=== PATIENT | female | born 1950 | race Caucasian/White ===

== ENCOUNTER 2018-01-02 00:19 | Inpatient (IN) | payer MEDICARE, OTHER ==
[2018-01-02] MEDS ORDERED: Aspirin 81 mg CHEW TAB* 81 MG TAB.CHEW PO ONE ×2 (00:44→12:03)
[2018-01-02 01:31] LABS: ABS Basophils 0 10^3/ul (0-0.2); ABS Eosinophils 0.1 10^3/ul (0-0.6); ABS Lymphocytes 1.1 10^3/ul (1.0-4.8); ABS Monocytes 0.7 10^3/ul (0-0.8); ABS Neutrophils 7.1 10^3/ul (1.5-7.7); ABS Nucleated RBC 0 10^3/ul; Eosinophil % 1.2 % (0-6); Hematocrit 41 % (35-47); Hemoglobin 14.2 g/dl (12.0-16.0); Lymphocyte % 12.2 % (25-47); Mean Corpuscular HGB Conc 35 g/dl (31-36); Mean Corpuscular Hemoglobin 34 pg (27-31); Mean Corpuscular Volume 98 fL (80-97); Mean Platelet Volume 8.1 um3 (7.4-10.4); Nucleated Red Blood Cells % 0; Platelet Count 247 10^3/ul (150-450); Red Cell Distribution Width 12 % (10.5-15); White Blood Count 9.1 10^3/ul (3.5-10.8)
[2018-01-02] MEDS ORDERED: Nitroglycerin TAB 0.4 MG* 0.4 MG TAB SL ONE (03:42)
[2018-01-02] MEDS ORDERED: ALPRAZolam TAB* 0.25 MG PO ONE ×2 (04:11→04:29)
[2018-01-02] MEDS ORDERED: Metoprolol Tartrate TAB* 25 MG PO ONE ×2 (04:11→04:14)
[2018-01-02] MEDS ORDERED: Metoprolol Tartrate IV* 1 MG/ML 5 ML VIAL IV ONE (04:12)
[2018-01-02] MEDS ORDERED: LORazepam INJ* 2 MG/ML 1 ML VIAL IV PUSH ONE ×2 (04:12→11:43)
[2018-01-02] MEDS ORDERED: Ondansetron INJ* 2 MG/ML VIAL IV ONE (04:25)
[2018-01-02] MEDS ORDERED: NS 0.9% 500 ML* 500 ML IV ONE (04:25)
[2018-01-02] MEDS ORDERED: Ondansetron ODT TAB* 4 MG ONE (04:31)
[2018-01-02] MEDS ORDERED: Ondansetron 40 MG VIAL* 2 MG/ML 20 ML VIAL IV PRN (04:59)
[2018-01-02] MEDS ORDERED: Atorvastatin* 80 MG TAB PO ONE ×2 (04:59)
[2018-01-02] MEDS ORDERED: Acetaminophen TAB* 325 MG PO PRN (04:59)
[2018-01-02] MEDS ORDERED: ALPRAZolam TAB* 0.25 MG PO PRN (05:03)
[2018-01-02] MEDS ORDERED: Albuterol 2.5 MG/3 ML NEB.SOL* (0.083%) INH PRN (05:05)
--- NOTE | 2018-01-02 06:35 | ED ---
Endy Pepe Elizabeth, scribed for Kimo Mckeon MD on 01/02/18 at 0033 . HPI Chest Pain - HPI Summary HPI Summary: This patient is a 67 year old F presenting to [facility] with a chief complaint of intermittent upper chest pain since 7 days ago. The patient notes that the pain worsened tonight at 22:30. The patient rates the pain 3/10 in severity. Symptoms aggravated by nothing. Symptoms alleviated by nothing. Patient reports mid-upper back pain, nausea, vomiting phlegm, productive cough, lightheadedness , and shortness of breath. The patient reports that she has been stressed recently. Patient has a hx of HTN. The patient also notes that she has had heartburn before but that this feels different. - History of Current Complaint Chief Complaint: EDChestPainROMI Time Seen by Provider: 01/02/18 00:28 Hx Obtained From: Patient Hx Last Menstrual Period: TIARA Onset/Duration: Started Days Ago - 7 days ago, Atraumatic, Still Present Initial Severity: Mild Current Severity: Mild Pain Intensity: 5 Pain Scale Used: 0-10 Numeric Chest Pain Location: Upper Sternal Chest Pain Radiates To:: Back - mid-upper back Aggravating Factor(s): Nothing Alleviating Factor(s): Nothing Associated Signs and Symptoms: Positive: Chest Pain, Lightheadedness, Nausea, Productive Cough, Back Pain, Vomiting - Allergy/Home Medications Allergies/Adverse Reactions: Allergies Allergy/AdvReac Type Severity Reaction Status Date / Time cephalexin [From Keflex] Allergy Severe Swelling Verified 01/02/18 00:58 Of Face,Lips,& Throat Sulfa (Sulfonamide Allergy Unknown Hives Verified 01/02/18 00:58 Antibiotics) loracarbef [From Lorabid] Allergy Unknown Verified 01/02/18 00:58 Reaction Details nitrofurantoin Allergy Unknown Verified 01/02/18 00:58 [From Macrobid] Reaction Details PMH/Surg Hx/FS Hx/Imm Hx Endocrine/Hematology History: Denies: Hx Diabetes, Hx Thyroid Disease Cardiovascular History: Reports: Hx Hypertension Respiratory History: Reports: Hx Asthma Denies: Hx Chronic Obstructive Pulmonary Disease (COPD) GI History: Denies: Hx Ulcer Musculoskeletal History: Reports: Hx Osteoporosis Denies: Hx Rheumatoid Arthritis - Cancer History Hx Chemotherapy: No Hx Radiation Therapy: No - Surgical History Surgery Procedure, Year, and Place: Hysterectomy 2000 Infectious Disease History: No Infectious Disease History: Reports: Hx Hepatitis Denies: Hx Human Immunodeficiency Virus (HIV), Traveled Outside the [place] in Last 30 Days - Family History Known Family History: Positive: Hypertension - Social History Alcohol Use: Rare Hx Substance Use: No Substance Use Type: Reports: None Hx Tobacco Use: No Smoking Status (MU): Never Smoked Tobacco Review of Systems Negative: Fever Negative: Epistaxis Positive: Chest Pain - upper chest Positive: Shortness Of Breath, Cough Positive: Vomiting, Nausea Musculoskeletal: Other - mid upper back pain Neurological: Other - positive lightheadedness All Other Systems Reviewed And Are Negative: Yes Physical Exam - Summary Physical Exam Summary: Appearance: Well-appearing, no distress, Well-nourished Skin: Warm, color reflects adequate perfusion Head: Normal Head/Face inspection Eyes: Conjunctiva clear ENT: Normal inspection Neck: Supple, no nodes, no JVD. no bruit Respiratory: Lungs clear, Normal breath sounds, no respiratory distress Cardio: RRR, No murmur, pulses normal, brisk capillary refill Abdomen: soft, nontender, no guarding, no rebound Bowel sounds: present Musculoskeletal: Strength Intact/ ROM intact. No calf tenderness. No edema. Neuro: Alert, muscle tone normal, facial symmetry, speech normal, sensory/motor intact Psychological: Normal Triage Information Reviewed: Yes Vital Signs On Initial Exam: Initial Vitals Temp Pulse Resp BP Pulse Ox 97 F 102 18 154/82 100 01/02/18 00:22 01/02/18 00:22 01/02/18 00:22 01/02/18 00:22 01/02/18 00:22 Vital Signs Reviewed: Yes Diagnostics - Vital Signs Vital Signs Temp Pulse Resp BP Pulse Ox 01/02/18 00:22 97 F 102 18 154/82 100 - Laboratory Lab Results: Lab Results 01/02/18 01/02/18 01/02/18 Range/Units 00:52 00:52 01:20 WBC 9.1 (3.5-10.8) 10^3/ul RBC 4.20 (4.00-5.40) 10^6/ul Hgb 14.2 (12.0-16.0) g/dl Hct 41 (35-47) % MCV 98 H (80-97) fL MCH 34 H (27-31) pg MCHC 35 (31-36) g/dl RDW 12 (10.5-15) % Plt Count 247 (150-450) 10^3/ul MPV 8.1 (7.4-10.4) um3 Neut % (Auto) 78.1 (38-83) % Lymph % (Auto) 12.2 L (25-47) % Ness % (Auto) 8.0 H (0-7) % Eos % (Auto) 1.2 (0-6) % Baso % (Auto) 0.5 (0-2) % Absolute Neuts (auto) 7.1 (1.5-7.7) 10^3/ul Absolute Lymphs (auto) 1.1 (1.0-4.8) 10^3/ul Absolute Monos (auto) 0.7 (0-0.8) 10^3/ul Absolute Eos (auto) 0.1 (0-0.6) 10^3/ul Absolute Basos (auto) 0 (0-0.2) 10^3/ul Absolute Nucleated RBC 0 10^3/ul Nucleated RBC % 0 D-Dimer, Quantitative (Less Than 230) ng/mL Sodium 137 (135-145) mmol/L Potassium 3.6 (3.5-5.0) mmol/L Chloride 102 (101-111) mmol/L Carbon Dioxide 25 (22-32) mmol/L Anion Gap 10 (2-11) mmol/L BUN 25 H (6-24) mg/dL Creatinine 0.94 (0.51-0.95) mg/dL Est GFR ( Amer) 75.9 (>60) Est GFR (Non-Af Amer) 59.0 (>60) BUN/Creatinine Ratio 26.6 H (8-20) Glucose 128 H (70-100) mg/dL Calcium 9.6 (8.6-10.3) mg/dL Total Bilirubin 0.40 (0.2-1.0) mg/dL AST 17 (13-39) U/L ALT 15 (7-52) U/L Alkaline Phosphatase 77 (34-104) U/L Troponin I 0.05 H* (<0.04) ng/mL B-Natriuretic Peptide 42 ( - 100) pg/mL Total Protein 7.0 (6.4-8.9) g/dL Albumin 4.1 (3.2-5.2) g/dL Globulin 2.9 (2-4) g/dL Albumin/Globulin Ratio 1.4 (1-3) Lipase 38 (11.0-82.0) U/L 01/02/18 01/02/18 Range/Units 03:01 03:01 WBC (3.5-10.8) 10^3/ul RBC (4.00-5.40) 10^6/ul Hgb (12.0-16.0) g/dl Hct (35-47) % MCV (80-97) fL MCH (27-31) pg MCHC (31-36) g/dl RDW (10.5-15) % Plt Count (150-450) 10^3/ul MPV (7.4-10.4) um3 Neut % (Auto) (38-83) % Lymph % (Auto) (25-47) % Ness % (Auto) (0-7) % Eos % (Auto) (0-6) % Baso % (Auto) (0-2) % Absolute Neuts (auto) (1.5-7.7) 10^3/ul Absolute Lymphs (auto) (1.0-4.8) 10^3/ul Absolute Monos (auto) (0-0.8) 10^3/ul Absolute Eos (auto) (0-0.6) 10^3/ul Absolute Basos (auto) (0-0.2) 10^3/ul Absolute Nucleated RBC 10^3/ul Nucleated RBC % D-Dimer, Quantitative < 200 (Less Than 230) ng/mL Sodium (135-145) mmol/L Potassium (3.5-5.0) mmol/L Chloride (101-111) mmol/L Carbon Dioxide (22-32) mmol/L Anion Gap (2-11) mmol/L BUN (6-24) mg/dL Creatinine (0.51-0.95) mg/dL Est GFR ( Amer) (>60) Est GFR (Non-Af Amer) (>60) BUN/Creatinine Ratio (8-20) Glucose (70-100) mg/dL Calcium (8.6-10.3) mg/dL Total Bilirubin (0.2-1.0) mg/dL AST (13-39) U/L ALT (7-52) U/L Alkaline Phosphatase (34-104) U/L Troponin I 0.18 H* (<0.04) ng/mL B-Natriuretic Peptide ( - 100) pg/mL Total Protein (6.4-8.9) g/dL Albumin (3.2-5.2) g/dL Globulin (2-4) g/dL Albumin/Globulin Ratio (1-3) Lipase (11.0-82.0) U/L Result Diagrams: 01/02/18 01:20 01/02/18 00:52 Lab Statement: Any lab studies that have been ordered have been reviewed, and results considered in the medical decision making process. - Radiology CXR Xray Interpretation: No Acute Changes - Impression: no acute cardiopulmonary process, normal CXR Radiology Interpretation Completed By: ED Physician - Dr. Mckeon, pending official report - EKG 00:29 Cardiac Rate: NL - at 86 bpm EKG Rhythm: Sinus Rhythm EKG Interpretation: NSR, nml axis, nml intervals, no ST or T wave changes 04:00 Cardiac Rate: Tachycardia - at 100 bpm EKG Rhythm: Sinus Tachycardia EKG Interpretation: nml axis, nml intervals, no ST or T wave changes, new EKG findings noted Re-Evaluation - Re-Evaluation First Eval Comment: Pt chest pain continues to be 1-09/27. Pt with elevated Troponin consistent with ACS. Spoke with Hematology regarding recommendations for anticoagulation given pt's Von Willebrands disease. NO acute rec's at this time. Chest Pain Course/Dx - Course Course Of Treatment: Pt with elevated and rising Troponin's. Pt with h/o von Wilibrand's disease, as pt not a candidate for ASA or Heparin at this time. Unclear aas to plan for anticoagulation. Spoke with Hematology and Cardiology regarding plan of care, with no clear consensus. Will hold anticoagulation for now with plan for coordinated treatment plan in the am. - Chest Pain Differential Diagnosis/HQI/PQRI: Acute VT, ACS, Angina, CHF, Chest Wall, GI Disease, Lower Respiratory Infection, Pulmonary Edema, Pulmonary Embolism - Diagnoses Provider Diagnoses: NSTEMI (non-ST elevated myocardial infarction) - Provider Notifications Discussed Care Of Patient With: Igor Nobles MD Time Discussed With Above Provider: 03:45 Instructed by Provider To: Other - Dr. Nobles agreed to admit patient to [facility] [place]. At 03:35 discussed patient care with Dr. Roe, personal lines sales executive, and requested formal consultation in the morning regarding anticoagulation. - Critical Care Time Critical Care Time: 30-74 min - Failure to initiate treatment on urgent bassis would result in clinically significant life threatening detioration in condition. Discharge - Sign-Out/Discharge Documenting (check all that apply): Discharge/Admit/Transfer - Discharge Plan Condition: Stable Disposition: ADMITTED TO [facility] Discharge Disposition Comment: admit to [facility] [place] - Billing Disposition and Condition Condition: STABLE Disposition: Admitted to [facility] The documentation as recorded by the Endy norman Elizabeth accurately reflects the service I personally performed and the decisions made by , Kimo Mckeon MD.
[2018-01-02 06:53] LABS: EGFR Non-African American 66.3 (>60)
--- NOTE | 2018-01-02 07:56 | RAD ---
Indication: Chest pain and mid to upper back pain. Nausea and vomiting. History of asthma. Comparison: December 16, [address] Technique: Upright AP 0100 hours Report: Clear lungs and pleural spaces. Negative for pneumothorax. The heart, pulmonary vasculature, and mediastinal contours are unremarkable. Negative for free air beneath the diaphragm. Unremarkable osseous structures and soft tissue contours. IMPRESSION: No evidence for acute intrathoracic disease.
[2018-01-02] MEDS ORDERED: Citalopram TAB* 10 MG PO SCH (09:00)
[2018-01-02] MEDS ORDERED: SALMETEROL XINAFOATE IN SCH (09:00)
[2018-01-02] MEDS ORDERED: Budesonide Flexhaler 180 (NF) 180 MCG/ACT MDI INH SCH (09:00)
[2018-01-02] MEDS ORDERED: Metoprolol Tartrate TAB* 25 MG PO SCH (09:00)
[2018-01-02] MEDS ORDERED: Cetirizine* 10 MG TAB PO SCH (09:00)
[2018-01-02] MEDS ORDERED: Fluticasone/Vilanterol MDI(NF) 100/25 MDI INH SCH (09:00)
--- NOTE | 2018-01-02 09:03 | HP ---
AMENDED REPORT NOW INCLUDES COSIGNER DESIGNATION - ESIGNED BEFORE ADJUSTMENT CC: Dr. Mejia; Dr. Roe; Dr. Hernandez * HISTORY AND PHYSICAL: DATE OF ADMISSION: 01/02/18 PRIMARY CARE PROVIDER: Dr. Mejia. ATTENDING PHYSICIAN WHILE IN THE HOSPITAL: Dr. Swain * (report dictated by Livan Bobby NP). CONSULTING SWEET DOUGH MIXER: Dr. Hernandez. CONSULTING HOMOGENIZER OPERATOR: Dr. Roe. CHIEF COMPLAINT: Chest pain. HISTORY OF PRESENT ILLNESS: Mrs. Villavicencio is a 67-year-old female patient. She carries a history of hypertension, asthma, osteoporosis, history of diverticulosis, history of glaucoma, anxiety, depression and history of von Willebrand syndrome. She is coming in to our emergency department today stating that on Friday she was exercising. She was using the treadmill and she noticed that her chest felt funny while exercising. She stopped. The symptoms slowly dissipated. She thought maybe it was related to her asthma. She noticed that she had similar episodes on Friday. She also had similar episode on Friday. She does state that she is under a lot of stress. She thought maybe it was also related to stress. At times, she does have the discomfort associated with burping; however, tonight she had this episode about 4 times, however, she described this as a tightness, pressure, heaviness in the center of the chest that radiated across the chest through to her back. She says that she had associated nausea, associated diaphoresis, associated shortness of breath when she got these episodes tonight. Her last episode was at around 11: 30 tonight. She was concerned because the symptoms were not getting any better. They were a little bit more severe and they are becoming more frequent. She says that initially it happened with exertion on Friday. She denied any recent travel. No calf pain. No calf swelling. No lower edema. She denied any orthopnea. She said that the discomfort did not radiate into her jaw or down her arm. There has been no recent fevers or chills. She denied any recent URI or coughing type cold symptoms. She was concerned, came into our ER tonight, and it was noted that her enzymes were elevated. Her initial troponin was 0.05. Repeat troponin was 0.18. So because of these findings, we were asked to evaluate for admission. PAST MEDICAL HISTORY: Significant for: 1. Hypertension. 2. Asthma. 3. Osteoporosis. 4. Diverticulosis. 5. History of von Willebrand syndrome. She said she was diagnosed with this prior to her hysterectomy that was performed at [facility]. We are going to try to get those records as she said she has not had any bleeding episodes related to this. No reports of GI bleeding or internal bleeding. She does state that she bruising easily. She also has history of glaucoma and history of anxiety. 6. Depression. PAST SURGICAL HISTORY: She has had hysterectomy. MEDICATIONS: Home meds include: 1. Albuterol one inhaler every 4 hours as needed. 2. Tylenol two tablets every 6 hours as needed. 3. Xanax 0.25 mg p.o. t.i.d. as needed. 4. Radha 180 mg p.o. daily. 5. Celexa 10 mg daily. 6. Pulmicort two puffs inhaled daily. 7. Dyazide one capsule p.o. daily. 8. Travatan one drop both eyes daily. 9. Serevent one puff inhaled daily. 10. Flonase 50 mcg nasally daily. ALLERGIES TO MEDICATIONS: Include KEFLEX, SULFA, LORABID, PENICILLIN, NITROFURANTOIN, MACROBID. FAMILY HISTORY: Her mother had an [place] at 86. Father had a history of pericarditis and rheumatic fever. He when he was 29. SOCIAL HISTORY: She does not smoke. She does drink alcohol about 4 times a week. She denies recreational drug abuse. Surrogate decision maker is her . REVIEW OF SYSTEMS: There is no documented fever. She is denying any significant weight change. There is no double vision. She denies having any ear discharge. There is no rhinorrhea. She denies having any sore throat. There is no thyroid enlargement. There is chest pressure from my HPI. There is no orthopnea. There is no nocturnal dyspnea. She denies having any abdominal discomfort. There was nausea. She had one episode of vomiting today. She denies having any dysuria. There is no frequency. There was no seizure. There is no loss of consciousness. No pruritus and no skin ulcerations. Review of 14 systems completed, all others negative. PHYSICAL EXAMINATION GENERAL: At this time, Mrs. Villavicencio is a 67-year-old female patient. She is sitting in the ED stretcher. She does not appear to be in any acute distress. VITAL SIGNS: Blood pressure is noted to be 158/88, pulse 81, respirations 19, O2 saturations were 98%, temperature was 97. HEENT: Head: Atraumatic and normocephalic. Eyes: EOMs are intact. Sclerae anicteric and not pale. Throat: Oral mucosa appears to be moist. No oropharyngeal erythema. NECK: Supple. LUNGS: Clear to auscultation bilaterally. There were no wheezes, rales or rhonchi. HEART: Sounds S1, S2. She had regular rate and rhythm. No murmurs, rubs or gallops. ABDOMEN: Soft. It was flat, it was nontender. Bowel sounds were present. EXTREMITIES: Pulses are 2+ throughout. She is moving all 4 extremities with 5/ 5 strength. NEUROLOGIC: The patient is awake. She is alert. She is oriented x3. Tongue is midline. No gross focal deficits. Skin: Intact. DIAGNOSTIC STUDIES/LAB DATA: Her labs today revealed a WBC of 9.1, RBC of 4.20 , hemoglobin 14.2, hematocrit of 41, platelet count of 247. D-dimer less than 200. Sodium was 137, potassium of 3.6, chloride of 102, bicarb 25, BUN 25, creatinine of 0.94, glucose 128, calcium 9.6, total bili 0.4, AST 17, ALT 15, alk phos 77. Initial troponin was 0.05. Repeat troponin in 3 hours was 0.18. BNP of 42. Lipase 38, albumin normal. She did have a chest x-ray obtained today under my review. I did not appreciate any acute infiltrates or pulmonary edema and no effusions. Appeared to be a clear chest x-ray. She had several EKGs obtained today. The first one was at 12:30 tonight, which did show a normal sinus rhythm, rate of 85. She had a biphasic T- wave in V2 but no ST elevations were noted or any other T- wave inversions. Subsequent EKGs again continued to show the biphasic T-wave in V2. In addition to this that she was in sinus rhythm. Heart rate was [address] elevation what was noted. Also, please note she did have biphasic T waves in V1 as well, which remained stable with subsequent EKGs. Old medical records were reviewed. ASSESSMENT AND PLAN: Mrs. Villavicencio is a 67-year-old female patient with complex medical history coming in today with concerning story for chest pain, now found to have an elevated troponin. She will be admitted under inpatient status for: 1. Acute coronary syndrome. Case is complicated by the history of the von Willebrand syndrome. The patient said that this was diagnosed prior to her hysterectomy, she had a family history. She requested testing, which was tested as positive. She said she was given a medication prior to the procedure. The procedure was performed here at [facility]. We are going to try to get those records from the sponge diver, Dr. Arita. We may need to touch base with him in the morning to get these records to help clarify this. I did also touch base with cardiology and I also touched base with hematology. At this point, aspirin is not recommended by the hematology group because of the significant risk of bleeding associated with it unless absolutely necessary and in fact, hematology does recommend and prefers using heparin drip if she becomes unstable. At this point, she is chest pain free. EKG remained stable. Troponin is 0.18. Repeat troponin is pending. I did touch base with cardiology I asked if transfer was indicated given her history and if she would be considered a high risk cath at this point it was felt the patient could be cared for at [facility]. They would like antiplatelets; however, when offered to the patient, she refused this adamantly. She does know the risk associated with not taking the aspirin at this point but again, she is chest pain free and I explained to her the risks and benefits taking aspirin and she again did refuse. The plan would be to cycle the troponins, get another EKG in the morning, echo, get records from Dr. Arita's office, in addition to this, get formal cardiology evaluation and hematology evaluation, I did send off of von Willebrand panel as well. I would like to try to get her blood pressure down. I am going to get her on nitrates on the chest. I ordered nitro paste. I did order Lipitor and I ordered beta-brendon therapy. I placed her on telemetry and we will continue to follow her closely. 2. Hypertension. Again, blood pressure here was 158. I am going to get the nitro paste started and try to get this better controlled heart rate when she at times was in the 90s. It is now consistently running at around 70 with that beta-brendon given. 3. Asthma. This appears to be stable. We will continue her inhaler treatment as prescribed and p.r.n. nebs. 4. Osteoporosis. Follow with primary. 5. Diverticulosis. Not an active issue currently. 6. History of von Willebrand. Again, we are going to get records from Dr. Arita's office. We will need to have risks and benefits conversation with the patient about going forward for treatment of the possible acute coronary syndrome in terms of antiplatelet therapies and we will need to get records and again, hematology input. 7. Glaucoma. Continue her eye drops. 8. Anxiety and depression. She was very anxious when she heard the diagnosis of acute coronary syndrome and [id number] myocardial infarction. She was given p.r.n. Xanax. We will continue her Xanax and continue to follow. 9. DVT prophylaxis. I did order SCDs. 10. Code status. Full code. 11. Fluids, electrolytes, nutrition. I ordered clear liquid diet. TIME SPENT: Time spent on the admission was approximately 70 minutes, greater than half the time was spent [id number] with the patient obtaining my history and physical, other half time was spent going over the plan of care with the patient and implementing plan of care. I did discuss the plan of care with my attending, Dr. Swain; he is in agreement. LIVAN BOBBY NP [id number]/CPS #: [id number] [place]
[2018-01-02 09:31] LABS: ABS Basophils 0 10^3/ul (0-0.2); ABS Eosinophils 0.1 10^3/ul (0-0.6); ABS Lymphocytes 1.4 10^3/ul (1.0-4.8); ABS Monocytes 0.7 10^3/ul (0-0.8); ABS Neutrophils 6.9 10^3/ul (1.5-7.7); ABS Nucleated RBC 0 10^3/ul; Eosinophil % 1.2 % (0-6); Hematocrit 41 % (35-47); Hemoglobin 14.1 g/dl (12.0-16.0); Lymphocyte % 15.4 % (25-47); Mean Corpuscular HGB Conc 34 g/dl (31-36); Mean Corpuscular Hemoglobin 34 pg (27-31); Mean Corpuscular Volume 98 fL (80-97); Mean Platelet Volume 8.2 um3 (7.4-10.4); Nucleated Red Blood Cells % 0; Platelet Count 271 10^3/ul (150-450); Red Blood Count 4.22 10^6/ul (4.00-5.40); Red Cell Distribution Width 13 % (10.5-15); White Blood Count 9.2 10^3/ul (3.5-10.8)
--- NOTE | 2018-01-02 09:33 | ECHO ---
Patient: ANAT RAMIREZ [facility] Rec#: [id number] : 1950 Date: 01/02/2018 Age: 67y Height: 149.86 cm / 59.0 in Weight: 64.86 kg / 143.0 lbs Sex: F BSA: 1.6 Room#: 431 Admit Date#: 01/02/2018 Type: Inpatient Referring: Livan Bobby NP Reading: Jim Garland MD Rn Infusion: Iliana Wadsworth RDCS CC: Kush Mejia MD Transthoracic Echocardiogram Indication: NSTEMI BP: 157/84 HR: 79 Rhythm: NSR Findings History: HTN, asthma,Von Willebrand's disease. Technical Comments: The study quality is good. Completed at 0821. Left Ventricle: The left ventricular chamber size is decreased. Septal wall hypertrophy is observed. There is a prominent septal knuckle. There are multiple regional wall motion abnormalities. There is mildly decreased left ventricular systolic function. The estimated ejection fraction is 40-45%. closer to 40%. Abnormal left ventricular diastolic function is observed. Abnormal left ventricular diastolic filling is observed, consistent with impaired relaxation. The mid anteroseptal, mid anterior, apical septal, and apical lateral wall segments are hypokinetic (score 2). The apical anterior wall segment is akinetic (score 3). Overall wallmotion score index is 1.38 Left Atrium: The left atrial chamber size is normal. Right Ventricle: The right ventricular cavity size is normal. The right ventricular global systolic function is normal. Right Atrium: The right atrial cavity size is normal. Aortic Valve: The aortic valve is trileaflet. There is no evidence of aortic regurgitation. There is no evidence of aortic stenosis. Mitral Valve: The mitral valve leaflets are mildly thickened. There is a trace of mitral regurgitation. There is no evidence of mitral stenosis. Tricuspid Valve: The tricuspid valve leaflets are normal. There is trace to mild tricuspid regurgitation. No pulmonary hypertension is noted. There is no tricuspid stenosis. Pulmonic Valve: The pulmonic valve appears normal. There is no evidence of pulmonic regurgitation. There is no pulmonic stenosis. Pericardium: The pericardium appears normal. Aorta: There is no dilatation of the ascending aorta. There is no dilatation of the aortic arch. There is no dilation of the aortic root. Pulmonary Artery: The main pulmonary artery appears normal. Venous: The inferior vena cava appears normal in size. There is a greater than 50% respiratory change in the inferior vena cava dimension. Summary: There was not any prior study for comparison. Conclusions There is mildly decreased left ventricular systolic function with anteroapical and anteroseptal hypokinesis. The estimated ejection fraction is 40-45%, closer to 40%. Abnormal left ventricular diastolic function is observed. There is trace to mild tricuspid regurgitation. Measurements Name Value Normal Range RVIDd (AP) 2D 1.9 cm (0.9 - 2.6) RVDdMajor (2D) 2.3 cm (2.2 - 4.4) RAd ISD 4CH 3.8 cm (3.4 - 4.9) RA (A4C)W 3.4 cm (2.9 - 4.6) IVSd (2D) 1.2 cm (0.6 - 1) LVPWd (2D) 1 cm (0.6 - 1) LVIDd (2D) 3.5 cm (3.6 - 5.4) LVIDs (2D) 2.8 cm - LV FS (2D) 20 % (25 - 45) Aortic Annulus 1.7 cm (1.4 - 2.6) Ao root diameter (2D) 3.1 cm (2.1 - 3.5) Ascending Ao 2.7 cm (2.1 - 3.4) Aortic arch 1.8 cm (1.8 - 3.4) Descending Ao 0.5 cm - LA dimension (AP) 2D 3.6 cm (2.3 - 3.8) LAd ISD 4CH 5.8 cm (2.9 - 5.3) LA ISD 4CH W 3.2 cm (2.5 - 4.5) Name Value Normal Range LA ESV SP 4CH (A/L) 36 ml - LA ESV SP 2CH (A/L) 37 ml - LA ESV BP (A/L) 37 ml - LA ESV BP (A/L) index 23.3 ml/m2 - LA ESV SP 4CH (MOD) 33 ml - LA ESV SP 2CH (MOD) 35 ml - Name Value Normal Range MV E-wave Vmax 0.8 m/sec - MV deceleration time 190 msec - MV A-wave Vmax 1 m/sec - MV E:A ratio 0.78 ratio - LV septal e' Vmax 0.06 m/sec - LV lateral e' Vmax 0.07 m/sec - LV E:e' septal ratio 13.33 ratio - LV E:e' lateral ratio 11.42 ratio - Name Value Normal Range AV Vmax 1.3 m/sec - AV VTI 33.5 cm - AV peak gradient 6.33 mmHg - AV mean gradient 2.8 mmHg - LVOT Vmax 1 m/sec - LVOT VTI 23.6 cm - LVOT peak gradient 3.85 mmHg - LVOT mean gradient 1.85 mmHg - Name Value Normal Range TR Vmax 2.3 m/sec - TR peak gradient 22 mmHg - RAP 3 mmHg - RVSP 25 mmHg - IVC diameter 1.2 cm - Name Value Normal Range PV Vmax 0.8 m/sec - PV peak gradient 2.69 mmHg - Wallmotion BAS Normal BA Normal BAL Normal CORNELIUS Normal BI Normal BIS Normal MAS Hypokinetic MA Hypokinetic MAL Normal MIL Normal NV Normal MIS Normal Hypokinetic AA Akinetic AL Hypokinetic AI Normal APEX Hypokinetic
[2018-01-02 09:40] LABS: INR 0.97 (0.77-1.02)
[2018-01-02] MEDS: Nitroglycerin 2% OINT* 1 GM PAK TOPICAL SCH ×3 (10:31→16:09)
[2018-01-02] MEDS ORDERED: Nitro Patch/OINT Remove TOPICAL SCH (12:00)
--- NOTE | 2018-01-02 12:28 | PN ---
Subjective Date of Service: 01/02/18 Interval History: Patient seen and examined. Denies chest pain at this time. No SOB, no epigastric pain, no n/v, no fever or chills. Discussed plan of care at length with patient, Dr. Garland and Dr. Dennis. Patient is visibly distressed and tearful but accepting of being transferred to outside facility given hx of VonWillebrands and now with ACS/NSTEMI and our inability to provide cath because of bleeding risk. Objective Active Medications: Acetaminophen (Tylenol Tab*) 650 mg PO Q4H PRN PRN Reason: FEVER/PAIN Albuterol (Ventolin 2.5 Mg/3 Ml Neb.Denise*) 2.5 mg INH Q2H PRN PRN Reason: SOB/WHEEZING Alprazolam (Xanax Tab*) 0.25 mg PO TID PRN PRN Reason: ANXIETY Atorvastatin Calcium (Lipitor*) 80 mg PO 1700 [facility] Cetirizine HCl (Zyrtec*) 10 mg PO DAILY ROHIT PRN Reason: Protocol Last Admin: 01/02/18 10:24 Dose: 10 mg Citalopram Hydrobromide (Celexa Tab*) 10 mg PO DAILY [facility] Last Admin: 01/02/18 10:25 Dose: 10 mg Latanoprost (Xalatan 0.005%*) 1 drop BOTH EYES QPM ROHIT PRN Reason: Protocol Metoprolol Tartrate (Lopressor Tab*) 25 mg PO BID [facility] Last Admin: 01/02/18 10:25 Dose: 25 mg Mometasone Furoate (Asmanex 220 Mcg Mdi *) 1 puff INH QPM ROHIT Nitroglycerin (Nitroglycerin 2% Oint*) 0.5 inch TOPICAL 0600,1200 ROHIT PRN Reason: Protocol Last Admin: 01/02/18 10:31 Dose: 0.5 inch Ondansetron HCl (Zofran 40 Mg Vial*) 4 mg IV Q6H PRN PRN Reason: NAUSEA Pharmacy Profile Note (Nitro Patch/Oint Remove*) 1 note TOPICAL 1200,1800 [facility] Salmeterol Xinafoate (Serevent Diskus (Nf)) 1 puff INH BEDTIME [facility] Vital Signs - 8 hr 01/02/18 01/02/18 01/02/18 05:37 05:40 06:00 Temperature 98.1 F Pulse Rate 66 59 56 Respiratory 16 16 19 Rate Blood Pressure 153/76 134/78 (mmHg) O2 Sat by Pulse 98 98 95 Oximetry 01/02/18 01/02/18 01/02/18 06:10 06:33 08:00 Temperature 97.8 F Pulse Rate 56 87 Respiratory 16 20 18 Rate Blood Pressure 152/82 157/84 (mmHg) O2 Sat by Pulse 96 97 Oximetry 01/02/18 08:26 Temperature 98.8 F Pulse Rate 64 Respiratory 16 Rate Blood Pressure 144/66 (mmHg) O2 Sat by Pulse 98 Oximetry Oxygen Devices in Use Now: None Appearance: Alert, tearful Eyes: No Scleral Icterus, PERRLA Ears/Nose/Mouth/Throat: NL Teeth, Lips, Gums, Mucous Membranes Moist Neck: NL Appearance and Movements; NL JVP, Trachea Midline Respiratory: Symmetrical Chest Expansion and Respiratory Effort, Clear to Auscultation Cardiovascular: NL Sounds; No Murmurs; No JVD, RRR, No Edema Abdominal: NL Sounds; No Tenderness; No Distention Extremities: No Edema, No Clubbing, Cyanosis Neurological: Alert and Oriented x 3, NL Sensation, NL Gait Nutrition: Taking PO's Result Diagrams: 01/02/18 09:22 01/02/18 06:30 Additional Lab and Data: Lab Results 01/02/18 01/02/18 01/02/18 Range/Units 00:52 00:52 01:20 WBC 9.1 (3.5-10.8) 10^3/ul RBC 4.20 (4.00-5.40) 10^6/ul Hgb 14.2 (12.0-16.0) g/dl Hct 41 (35-47) % MCV 98 H (80-97) fL MCH 34 H (27-31) pg MCHC 35 (31-36) g/dl RDW 12 (10.5-15) % Plt Count 247 (150-450) 10^3/ul MPV 8.1 (7.4-10.4) um3 Neut % (Auto) 78.1 (38-83) % Lymph % (Auto) 12.2 L (25-47) % [place] % (Auto) 8.0 H (0-7) % Eos % (Auto) 1.2 (0-6) % Baso % (Auto) 0.5 (0-2) % Absolute Neuts (auto) 7.1 (1.5-7.7) 10^3/ul Absolute Lymphs (auto) 1.1 (1.0-4.8) 10^3/ul Absolute Monos (auto) 0.7 (0-0.8) 10^3/ul Absolute Eos (auto) 0.1 (0-0.6) 10^3/ul Absolute Basos (auto) 0 (0-0.2) 10^3/ul Absolute Nucleated RBC 0 10^3/ul Nucleated RBC % 0 D-Dimer, Quantitative (Less Than 230) ng/mL Sodium 137 (135-145) mmol/L Potassium 3.6 (3.5-5.0) mmol/L Chloride 102 (101-111) mmol/L Carbon Dioxide 25 (22-32) mmol/L Anion Gap 10 (2-11) mmol/L BUN 25 H (6-24) mg/dL Creatinine 0.94 (0.51-0.95) mg/dL Est GFR ( Amer) 75.9 (>60) Est GFR (Non-Af Amer) 59.0 (>60) BUN/Creatinine Ratio 26.6 H (8-20) Glucose 128 H (70-100) mg/dL Calcium 9.6 (8.6-10.3) mg/dL Total Bilirubin 0.40 (0.2-1.0) mg/dL AST 17 (13-39) U/L ALT 15 (7-52) U/L Alkaline Phosphatase 77 (34-104) U/L Troponin I 0.05 H* (<0.04) ng/mL B-Natriuretic Peptide 42 ( - 100) pg/mL Total Protein 7.0 (6.4-8.9) g/dL Albumin 4.1 (3.2-5.2) g/dL Globulin 2.9 (2-4) g/dL Albumin/Globulin Ratio 1.4 (1-3) Lipase 38 (11.0-82.0) U/L 01/02/18 01/02/18 Range/Units 03:01 03:01 WBC (3.5-10.8) 10^3/ul RBC (4.00-5.40) 10^6/ul Hgb (12.0-16.0) g/dl Hct (35-47) % MCV (80-97) fL MCH (27-31) pg MCHC (31-36) g/dl RDW (10.5-15) % Plt Count (150-450) 10^3/ul MPV (7.4-10.4) um3 Neut % (Auto) (38-83) % Lymph % (Auto) (25-47) % [place] % (Auto) (0-7) % Eos % (Auto) (0-6) % Baso % (Auto) (0-2) % Absolute Neuts (auto) (1.5-7.7) 10^3/ul Absolute Lymphs (auto) (1.0-4.8) 10^3/ul Absolute Monos (auto) (0-0.8) 10^3/ul Absolute Eos (auto) (0-0.6) 10^3/ul Absolute Basos (auto) (0-0.2) 10^3/ul Absolute Nucleated RBC 10^3/ul Nucleated RBC % D-Dimer, Quantitative < 200 (Less Than 230) ng/mL Sodium (135-145) mmol/L Potassium (3.5-5.0) mmol/L Chloride (101-111) mmol/L Carbon Dioxide (22-32) mmol/L Anion Gap (2-11) mmol/L BUN (6-24) mg/dL Creatinine (0.51-0.95) mg/dL Est GFR ( Amer) (>60) Est GFR (Non-Af Amer) (>60) BUN/Creatinine Ratio (8-20) Glucose (70-100) mg/dL Calcium (8.6-10.3) mg/dL Total Bilirubin (0.2-1.0) mg/dL AST (13-39) U/L ALT (7-52) U/L Alkaline Phosphatase (34-104) U/L Troponin I 0.18 H* (<0.04) ng/mL B-Natriuretic Peptide ( - 100) pg/mL Total Protein (6.4-8.9) g/dL Albumin (3.2-5.2) g/dL Globulin (2-4) g/dL Albumin/Globulin Ratio (1-3) Lipase (11.0-82.0) U/L Diagnostic Imaging: CARDIAC ECHO: Conclusions There is mildly decreased left ventricular systolic function with anteroapical and anteroseptal hypokinesis. The estimated ejection fraction is 40-45%, closer to 40%. Abnormal left ventricular diastolic function is observed. There is trace to mild tricuspid regurgitation. Assess/Plan/Problems-Billing Assessment: This is a 67 year old female patient with history of HTN, Asthma, osteoporosis, anxiety/depression that presented the the ER with 3 day hx of intermittent chest discomfort radiating to the back with associated nause and diaphoresis that has ruled in for NSTEMI. - Patient Problems (1) NSTEMI (non-ST elevated myocardial infarction) Code(s): I21.4 - NON-ST ELEVATION (NSTEMI) MYOCARDIAL INFARCTION SNOMED Code(s ): 081902824 Comment: - ECHO as above - Troponins 0.05/0.18/0.22/0.17 - EKG with new Q wave this morning - High risk for cath here 2/2 reported history of Von Willebrands - Interventional cardiology ecommending transfer to higher level of care - NTG paste, continue tele, EKG for any changes, BB, atorvastatin (2) Von Willebrand disease Code(s): D68.0 - VON WILLEBRAND'S DISEASE SNOMED Code(s): 878229746 Comment: - Patient reports testing >10 years ago prior to hysterectomy but does not know Type and has not had testing since - Unable to obtain old records - VonWillebrand panel sent at admission but not resulted yet - Per hematology, ok for one dose ASA 324mg now, do not heparinize (3) HTN (hypertension) Code(s): I10 - ESSENTIAL (PRIMARY) HYPERTENSION SNOMED Code(s): 69256072 Comment: - Metoprolol 25mg BID (4) Anxiety Code(s): F41.9 - ANXIETY DISORDER, UNSPECIFIED SNOMED Code(s): 90765263 Comment: - xanax PRN, continue SSRI (5) Asthma Code(s): J45.909 - UNSPECIFIED ASTHMA, UNCOMPLICATED SNOMED Code(s): 722965652 Comment: - Albuterol PRN, serevent Status and Disposition: Multiple discussions regarding safest POC, as patient needs intervention and is high risk for reinfarction/decompensation. As of now, Dr. Sosa at [facility] is accepting, pending bed assignment.
--- NOTE | 2018-01-02 12:32 | CONS ---
ADDENDUM TO CONSULTATION: Her medications as an inpatient included: 1. Acetaminophen. 2. Albuterol nebulizers. 3. Alprazolam 0.25 mg t.i.d. p.r.n. 4. Zyrtec 10 mg a day. 5. Celexa 10 mg a day. 6. Xalatan 1 drop to both eyes q.p.m. 7. Metoprolol tartrate 25 mg b.i.d. ALLERGIES: Include SULFA, CEPHALEXIN, NITROFURANTOIN, LORABID. [id number]/[facility] #: [id number]
--- NOTE | 2018-01-02 14:18 | CONS ---
CARDIOLOGY CONSULTATION: DATE OF CONSULT: 01/02/18 REASON FOR EVALUATION: Non-ST elevation DC. HISTORY OF PRESENT ILLNESS: This is a pleasant 67-year-old woman who has a history of hypertension, anxiety, depression, and a self-reported history of von Willebrand syndrome. She was admitted last night after several days of intermittent chest discomfort lasting 5 to 10 minutes, sometimes associated with nausea, shortness of breath, and diaphoresis. She said the first time she noticed something change was on Friday. She occasionally does 3000 steps on a treadmill. She says Friday she tried doing it for the fist time in a couple of weeks. She said she was more short of breath at 2600 steps, but she was able to complete it, but felt more tired and more short of breath the following night. She denied to me that her chest felt funny at that time, but she told the admitting physician that her chest felt funny and she thought might be it was asthma. On Friday, she had a couple of episodes of feeling some chest discomfort 2 to 3 times over the day, 5 to 10 minutes each, and 2 to 3 times over the night. She said she thought it was her indigestion and she took some [id number] nausea pills and some Xanax and the symptoms resolved. It is unclear if it was causing effect. She continued to have those symptoms on Friday. , she had an episode at 8:30 in the morning, went out and did her errands and then that night started having serial episodes at 6:30, 8:30 , and 10:30. She vomited with 2 of the episodes. She was sweaty and short of breath. Eventually at 11:30 that night, she decided to come to the emergency room; by the time she got to the emergency room, she was pain free. Her initial troponin was 0.05 and went up to 0.18 and she was admitted. She also had some nonspecific anterior ST-T changes, and she has been admitted. Her troponin peaked at 0.22 earlier this morning at 6:30 and went down to 0.17 at 9: 22 a.m. She also had an echocardiogram performed this morning, which revealed multiple regional wall motion abnormalities, mildly decreased LV function, EF of 40% to 45%, closer to 40% abnormal diastolic function. There appeared to be anterior, anterior septal, anterior apical hypokinesis. There is trace MR, [id number] TR. No previous for comparison. The patient denies any previous heart problems, although she has been told of a murmur in the past. She denies rheumatic fever. She denies diabetes, she says that she has been told it is borderline. She denies hyperlipidemia. She does have a family history of a father who at 29 after a rheumatic fever and pericarditis, a mother who had von Willebrand's and of an DC at 86, and a brother possibly had von Willebrand's but is alive. PAST MEDICAL HISTORY: Her other past medical history includes hypertension, asthma since her 20s with allergies to pollens and mold and trees, anxiety and depression, diverticulosis, osteoporosis, and von Willebrand syndrome. She said that she had testing prior to her hysterectomy in 2000 and was told that it was positive by her HEATING ENGINEER. We have not been able to confirm that testing. She has a history of glaucoma. PAST SURGICAL HISTORY: Includes hysterectomy in 2000. SOCIAL HISTORY: She is . She has had 1 child and just 2 step-children. 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 She does not exercise regularly. She does some volunteer work and is active. REVIEW OF SYSTEMS: Her review of systems x10 was negative except as above including for orthopnea, fevers, chills, or bleeding problems. She denies any major bleeding problems in the past. She denies a history of tobacco use. She does drink 1 to 2 drinks a couple of times a few times a week, but not every day. She denies recreational drug use. PHYSICAL EXAM: She is a well-developed, well-nourished, overweight female, in no apparent distress. No significant JVD. Carotids 2+ without bruits. No cervical lymphadenopathy, no thyromegaly. Extraocular muscles are intact. Cardiac Exam: S1 and S2 with no clear murmurs, gallops, or rubs. There may have been a faint 1/6 murmur at the left lower sternal border with inspiration, but it was not very consistently. Chest was clear, no CVAT. Abdomen: Bowel sounds present, nontender. No hepatosplenomegaly. Femoral pulses intact without bruits. Distal pulses intact. No edema. Motor strength 5/5 bilaterally. Deep tendon reflexes 2/4 in the upper extremities, 1/4 in the lower extremities. Skin turgor normal. DIAGNOSTIC STUDIES/LAB DATA: Echo as above. Labs include troponins of 0.05 on admission, 0.18, 0.22, and 0.17 at 9:22 this evening. Her glucoses were elevated at 128 last night and 117 this morning, BUN is 20, creatinine of 0.85, potassium of 3.5, cholesterol of 206, LDL of 112, and HDL of 71. White count of 9, hemoglobin of 14.1, hematocrit of 41, MCV elevated at 98. INR of 0.97, APTT of 28.6. D-dimer was negative. Chest x-ray by report revealed no evidence for intrathoracic disease. EKG from January 02 at 4 a.m. revealed a sinus tachycardia at 100 with poor R-wave progression and ST depressions in I and aVL. EKG from midnight revealed sinus rhythm of 86 with minor nonspecific anterolateral ST depressions and biphasic T-wave in V2 and V1. A subsequent EKG revealed more pronounced T-wave inversions in V1 and V2. IMPRESSION: My impression is that Ms. Villavicencio appears to have a non-ST- elevation DC with a history of hypertension, hyperlipidemia, and possible von Willebrand syndrome. I did discuss at length the findings with her and Dr. Dennis. I have recommended proceeding with cardiac catheterization for acute coronary syndrome, non-ST elevation. However, there is concern that we do not have the availability to monitor her factor levels here. Dr. Dennis advised that she would benefit from further hematological evaluation of her VWF status which cannot be done here. He also adivsed that her factor 8 levels would have to be monitored on a daily basis while manipulating her anticoagulation and when committing to long-term anticoagulation. Based on these discussions, I have recommended the followin. I would continue the beta-brendon and advance as tolerated as we are doing. 2. I would suggest adding aspirin to her regimen, which according to Dr. Dennis was reasonable in the short term. 3. If necessary, we could use IV heparin with the ability to reverse it, but again she is at increased risk for bleeding complications. 4. We would add a statin agent to her regimen. 5. We will continue nitrates as we are doing. 6. We would repeat her EKG at this point in time. 7. She has a history of anxiety and was emotional and anxious this morning. We would consider treating her anxiety as needed with benzodiazepines. 8. We will check a hemoglobin A1c given her elevated glucoses. 9. We will try to maintain her potassium over 4. 10. I did recommend long-term followup with Dr. Dennis if indeed she confirms to have von Willebrand's since she may require long-term monitoring on anticoagulant therapy if indeed she has intervention. Given her mildly reduced LV function, we will also consider adding SYDNEY inhibitors. Given her anxiety at this point and potential for side effects from medications, we might defer the addition of an acei until we have better control of her heart rate and blood pressures on the beta-brendon and anticoagulants. ADDENDUM TO CONSULTATION: Her medications as an inpatient included: 1. Acetaminophen. 2. Albuterol nebulizers. 3. Alprazolam 0.25 mg t.i.d. p.r.n. 4. Zyrtec 10 mg a day. 5. Celexa 10 mg a day. 6. Xalatan 1 drop to both eyes q.p.m. 7. Metoprolol tartrate 25 mg b.i.d. ALLERGIES: Include SULFA, CEPHALEXIN, NITROFURANTOIN, LORABID. [id number]/[facility] #: [id number] #: [id number] addendum; Discussed multiple times today with Brooklynn Montes and Dr. Rico. DR. Rico has kindly agreed to accept this patient for cath with hematological evaluation at [facility]. additional 30 min face to face and coordinating care. Plan is to transfer patient tonight or tomorrow as the bed situation will allow. IVONE 6.15.18 MTDD
[2018-01-02 16:32] VITALS: BP 104/55
[2018-01-02] MEDS ORDERED: Atorvastatin* 80 MG TAB PO SCH (17:00)
--- NOTE | 2018-01-02 17:12 | TRS ---
AMENDED REPORT NOW INCLUDES COSIGNER DESIGNATION - ESIGNED BEFORE ADJUSTMENT CC: Dr. Kush Mejia * DATE OF ADMISSION: 01/02/2018. DATE OF TRANSFER: 01/02/2018. ATTENDING PHYSICIAN FOR THIS ADMISSION: Dr. Shelton Swain. MY ATTENDING PHYSICIAN FOR TODAY: Dr. Lexy Farooq * (dictated by Gerardo Montes, JULIEN). HOSPITAL COURSE: This is a very pleasant, 67-year-old female patient who presented herself to the emergency department with report of intermittent epigastric pain with associated nausea and diaphoresis times three days. The patient stated initially she felt the epigastric pain that was radiating between the shoulder blades was a result of her asthma as she had some exertional dyspnea as well. The patient stated that after it persisted for several days and then after she became nauseous and sweaty, she came to the emergency department for evaluation. Her EKG did not show any acute ST segment changes; however, she did have a positive troponin of 0.05 which continued to elevate over the course of several hours. Her initial troponin was at approximately ten minutes to one in the morning, three hours later it was 0.18, three hours later at 0.22, and her final troponin at 9:22 this morning was 0.17. The patient had serial EKG's and her last one at 4 o'clock this morning showed a Q-wave in the V1 lead and showing an anteroseptal infarct. The patient also had a cardiac echo performed which showed mildly decreased left ventricular systolic function with an anteroapical and anteroseptal hypokinesis. Estimated ejection fraction was between 40 and 50 percent; however , it is likely closer to 40 percent. She has abnormal left ventricular diastolic function also observed with trace mild tricuspid regurgitation. It also notes that she has septal wall hypertrophy, prominent septal knuckle, and multiple regional wall motion abnormalities. The patient reported her past medical history as having hypertension, asthma, and a history of anxiety and depression; however, she also reported a history of Von Willebrand syndrome. The patient could not state any recent testing. She explained that she was told greater than ten years ago prior to having a hysterectomy that she was diagnosed this syndrome and that she had been treated for it prior to having the hysterectomy. Again, we could not confirm the type of Von Willebrand's, whether she had severe type 2, etc, and we were not able to obtain old records. The patient was initially admitted inpatient pending her troponin flattening to see if she was going to have intervention; however, when the rand maker evaluated her work-up and given the history of Von Willebrand, he wanted Hematology to also consult on the patient. At that point, our friction saw operator could not state with certainty again what type of Von Willebrand's and the testing necessary that would have to be obtained would cause a delay in her cardiac care. At that point, all the specialists came together and had a discussion that it would probably be safer for the patient to be in a tertiary care facility, that she may be a high risk cath, and would be outside the scope of what could be provided at our facility. Multiple phone calls were made to several different tertiary care facilities. Ultimately we received accepting placement at [facility] with Dr. Sosa, the hospitalist there, and also Dr. Carlos Harris from Cardiology. The patient's bed number is [id number]. Transfer has been initiated. We are awaiting transport. PHYSICAL EXAMINATION: General: The patient is alert, mildly distress. Vital signs today: Blood pressure 136/61, heart rate 54, respiratory rate 18, saturation 98 percent on room air, temperature 97.9. HEENT: The patient is atraumatic, normocephalic. PERRLA with nonicteric sclerae. Oral mucosa is moist. Tongue is midline. Neck: Supple, nontender. No JVD noted. No carotid bruit auscultated. Cardiovascular: S1, S2 present. No gallops or rubs. She has a very faint, maybe grade 1/6 systolic murmur noted. Rate and rhythm are regular. No ectopy on telemetry. She has had periods of tachycardia throughout the morning which has since resolved. Again regular sinus rhythm on telemetry. Lungs: Clear bilaterally to auscultation with no wheezing, rhonchi, or rales. Abdomen: Soft, nontender, nondistended. Positive bowel sounds all four quadrants. No organomegaly noted. : Deferred. Musculoskeletal: There is no clubbing, no cyanosis, no edema. She has +2 distal pulses palpable. Steady gait. Gross motor and sensation are intact. Neurologic: She is grossly intact with no vocalities. Psychiatric: She is tearful, but appropriate. LABORATORY DATA: WBC 9.2, RBC 4.22, hemoglobin 14.1, hematocrit 41, MCV 98, MCH 34, MCHC 34, RDW 13, platelets 271, MPV 8.2, neutrophils 75.4, lymphocytes 15.4, monocytes 7.5, eosinophils 1.2, basophils 0.5; INR 0.97, APTT 28.6, D- dimer less than 200; sodium 136, potassium 3.5, chloride 102, CO2 25, BUN 20, creatinine 0.85, GFR 66.3, glucose 117, hemoglobin A1c 5.4, calcium 9.6, bilirubin 0.40, AST 17, ALT 15, alk phos 77, troponins again 0.05, 0.18, 0.22, and 0.17, BNP 42, protein 7.0, albumin 4.1, globulin 2.9, triglycerides 112, cholesterol 206, LDL 112, HDL 71.3, lipase 38. IMAGING: Chest x-ray shows no evidence for any acute cardiopulmonary disease. Again last EKG as stated above as well as echo. MEDICATIONS: 1. Tylenol 650 mg p.o. q.4 hours as needed. 2. Albuterol 2.5 mg inhaled q.2 hours as needed. 3. Xanax 0.25 mg t.i.d. prn. 4. Lipitor 80 mg daily in the evening. 5. Zyrtec 10 mg daily. 6. Celexa 10 mg daily. 7. Xalatan eye drops one drop each eye in the evening. 8. Metoprolol Tartrate 25 mg two times a day. 9. Asmanex 220 mcg one puff inhaled each evening. 10. Nitro paste 0.5 inches topical at 0600 and 1200 scheduled. 11. Zofran 4 mg q.6 hours as needed. 12. Serevent Diskus one puff inhaled at bedtime. 13. Aspirin, she received one dose at 324 mg today. 14. Budesonide Pulmicort Flexhaler 180 mcg two puffs inhaled daily. 15. She also received one dose of Ativan IV for anxiety, 1 mg. DISPOSITION: The patient will be transferred to [facility] as soon as ambulance transport is available. The patient has agreed to her transport. Her has also been informed. She is aware of the plan of care and is in agreement. EMTALA paperwork has been signed. Transfer Center has been made aware. GERARDO MONTES, MANAGER OF TRAINING [id number]/[facility] #: [id number] [facility] CENTERIke
[2018-01-02] MEDS ORDERED: Mometasone 220 MCG MDI INH SCH (18:00)
[2018-01-02] MEDS ORDERED: Latanoprost 0.005%* 2.5 ml BTL BOTH EYES SCH (18:00)
[2018-01-02] MEDS ORDERED: Salmeterol DISKUS (NF) INH SCH (21:00)
== END 2018-01-02 18:30 | disposition short-term general hospital (02) | DRG 281 ==
LOC: ED 00:19 → MEDTELE 05:25
PROVIDERS: ADMIT Hospitalist; ATTEND Hospitalist
DX: I21.4 Non-ST elevation (NSTEMI) myocardial infarction (principal); D68.0 Von Willebrand disease; M81.0 Age-related osteoporosis without current pathological fracture; I10 Essential (primary) hypertension; J45.909 Unspecified asthma, uncomplicated; K57.90 Diverticulosis of intestine, part unspecified, without perforation or abscess without bleeding; H40.9 Unspecified glaucoma; F41.9 Anxiety disorder, unspecified; F32.9 Major depressive disorder, single episode, unspecified; I08.1 Rheumatic disorders of both mitral and tricuspid valves; Z88.1 Allergy status to other antibiotic agents; Z88.2 Allergy status to sulfonamides; Z72.89 Other problems related to lifestyle; Z88.8 Allergy status to other drugs, medicaments and biological substances; Z90.710 Acquired absence of both cervix and uterus; Z82.49 Family history of ischemic heart disease and other diseases of the circulatory system; Z86.19 Personal history of other infectious and parasitic diseases; Z79.82 Long term (current) use of aspirin; Z88.0 Allergy status to penicillin
CPT/HCPCS: 36415; 71045; 80048; 80053; 80061; 83036; 83690; 83880; 84484; 85025; 85240; 85379; 85610; 85730; 93005; 93306; 99285; A9270-GY; J2060